=== PATIENT | male | born 1985 | race African-American/Black ===

== ENCOUNTER 2017-12-18 10:58 | Emergency (ER) | payer OTHER ==
[2017-12-18] MEDS ORDERED: ISOVUE-370 76% 100ML VIAL (Q9967) As Ordered (14:18)
== END 2017-12-18 15:59 | disposition home or self-care (01) ==
LOC: M ED 10:58
DX: M54.2 Cervicalgia (principal); R51 Headache; R40.0 Somnolence; R42 Dizziness and giddiness; R93.8 Abnormal findings on diagnostic imaging of other specified body structures; G47.00 Insomnia, unspecified; R45.4 Irritability and anger; Z87.828 Personal history of other (healed) physical injury and trauma
CPT/HCPCS: Q9967

== ENCOUNTER 2018-06-22 12:18 | Emergency (ER) | payer OTHER ==
[~2018-06-22] VITALS: Ht 170.2 cm; Wt 77.4 kg
[2018-06-22 12:18] VITALS: BP 121/80
[~2018-06-22 12:18] MED LIST: LUNE3TAB36 PO; effexor
[2018-06-22] MEDS ORDERED: EFFE37.5 PO (12:24)
[2018-06-22] MEDS ORDERED: LEVE1INJ5 SC (12:24)
[2018-06-22] MEDS ORDERED: ANUS2.5C2 TOP (12:36)
[2018-06-22] MEDS ORDERED: [UNRECOGNIZED DRUG - CODE] XX (12:36)
== END 2018-06-22 12:42 | disposition home or self-care (01) ==
LOC: M ED 12:18
DX: K64.4 Residual hemorrhoidal skin tags (principal); E11.9 Type 2 diabetes mellitus without complications; Z79.4 Long term (current) use of insulin; Z79.899 Other long term (current) drug therapy

== ENCOUNTER 2018-06-26 20:20 | Inpatient (IN) | payer OTHER ==
[~2018-06-26] VITALS: Ht 170.2 cm; Wt 72.4 kg
[~2018-06-26 20:20] MED LIST changes: +ANUS2.5C2 TOP; +EFFE37.5 PO; +LEVE1INJ5 SC; +[UNRECOGNIZED DRUG - CODE] XX
[2018-06-26] MEDS ORDERED: NS 1,000 ML IV ONE ×2 (20:45→22:15)
[2018-06-26 21:05] LABS: AMPHETAMINES LEVEL URINE NEGATIVE (NEGATIVE); BARBITURATES URINE NEGATIVE (NEGATIVE); BENZODIAZEPINES URINE NEGATIVE (NEGATIVE); CANNABINOIDS URINE NEGATIVE (NEGATIVE); COCAINE METABOLITE URINE NEGATIVE (NEGATIVE); METHADONE URINE NEGATIVE (NEGATIVE); OPIATES URINE NEGATIVE (NEGATIVE); PHENCYCLIDINE URINE NEGATIVE (NEGATIVE)
[2018-06-26 21:45] LABS: BASO % 0.2 % (0.0-1.0); EOS % 0.2 % (0.0-3.0); HEMATOCRIT 41.1 % (42.0-52.0); LYMPH # 1.4 10^3/uL (1.5-4.5); LYMPH % 32.5 % (24.0-44.0); MEAN CORPUSCULAR HEMOGLOBIN 31.7 pg (27.0-33.0); MEAN CORPUSCULAR HGB CONC 34.1 g/dl (32.0-36.5); MONO # 0.5 10^3/uL (0.0-0.8); MONO % 11.3 % (0.0-5.0); NEUTROPHILS # 2.3 10^3/uL (1.8-7.7); NEUTROPHILS % 55.6 % (36.0-66.0); PLATELET COUNT, AUTOMATED 154 10^3/uL (150-450); RED BLOOD COUNT 4.42 10^6/uL (4.30-6.10); VENOUS BASE EXCESS -16.6 (-2.0-2.0); VENOUS O2 SATURATION 59.8 % (60.0-80.0); VENOUS PARTIAL PRESSURE CO2 32.1 mmHg (38.0-50.0); VENOUS PARTIAL PRESSURE O2 36.9 mmHg (30.0-50.0); VENOUS PH 7.152 UNITS (7.330-7.430); VENOUS STANDARD HCO3 11.6 MEQ/L; WHITE BLOOD COUNT 4.2 10^3/uL (4.0-10.0)
[2018-06-26 22:03] LABS: OSMOLALITY SERUM 322 MOSM/KG (275-295)
[2018-06-26 22:05] LABS: HEMOGLOBIN A1c 13.8 %
[2018-06-26 22:22] LABS: ACETONE/KETONE > 46.00 MG/DL (<2.81); ALBUMIN 4.1 GM/DL (3.2-5.2); ALT/SGPT 22 U/L (12-78); BILIRUBIN,DIRECT 0.2 MG/DL (0.0-0.2); BILIRUBIN,TOTAL 0.5 MG/DL (0.2-1.0); BLOOD UREA NITROGEN 16 MG/DL (7-18); CALCIUM LEVEL 8.8 MG/DL (8.5-10.1); CARBON DIOXIDE LEVEL 12 MEQ/L (21-32); CHLORIDE LEVEL 100 MEQ/L (98-107); CREATININE FOR GFR 1.43 MG/DL (0.70-1.30); ETHYL ALCOHOL (ETHANOL) < 0.003 % (0.000-0.010); GLOMERULAR FILTRATION RATE > 60.0 (>60); GLUCOSE, FASTING 404 MG/DL (70-100); LIPASE 76 U/L (73-393); POTASSIUM SERUM 4.3 MEQ/L (3.5-5.1); SODIUM LEVEL 137 MEQ/L (136-145); TOTAL PROTEIN 7.8 GM/DL (6.4-8.2)
[2018-06-26] MEDS ORDERED: INSULIN HUMAN REGULAR 100 UNITS in NS 99 ML IV SCH (22:34)
[2018-06-26] MEDS ORDERED: INSULIN IV RATE CHANGE DOCUMENTATION ML/HR XX SCH (22:45)
[2018-06-26] MEDS ORDERED: HumuLIN R (REGULAR) INSULIN (NovoLIN R) **100U/ML** PER UNIT IV ONE (22:45)
[2018-06-26] MEDS ORDERED: INSUH10VL SC (23:16)
[2018-06-26] MEDS ORDERED: EFFE150C2 PO (23:16)
[2018-06-26] MEDS ORDERED: [UNRECOGNIZED DRUG - CODE] PR (23:16)
[2018-06-26] MEDS ORDERED: ANUS2.5C2 PR (23:16)
[2018-06-26] MEDS ORDERED: INSUDET SC (23:16)
[2018-06-26] MEDS ORDERED: LUNE3TAB36 PO (23:16)
[2018-06-26] MEDS ORDERED: GI COCKTAIL 50ML BTL(HYOSCYAMINE/MAALOX/LIDOCAINE VISCOUS)(1:3:1) PO ONE (23:30)
[2018-06-27] VITALS (10 sets, daily range): BP systolic 107–146; BP diastolic 63–91
[2018-06-27 00:31] LABS: BLOOD UREA NITROGEN 14 MG/DL (7-18); CALCIUM LEVEL 7.9 MG/DL (8.5-10.1); CARBON DIOXIDE LEVEL 10 MEQ/L (21-32); CHLORIDE LEVEL 107 MEQ/L (98-107); GLOMERULAR FILTRATION RATE > 60.0 (>60); GLUCOSE, FASTING 296 MG/DL (70-100); MAGNESIUM LEVEL 1.7 MG/DL (1.8-2.4); POTASSIUM SERUM 3.8 MEQ/L (3.5-5.1); SODIUM LEVEL 140 MEQ/L (136-145)
[2018-06-27] MEDS: INSULIN HUMAN REGULAR 100 UNITS in NS 99 ML IV SCH (00:47)
[2018-06-27] MEDS: ANUSOL HC CREAM 30GM PR SCH ×4 (01:12→21:00)
[2018-06-27] MEDS: POTASSIUM CHLORIDE INJ 10 MEQ in NS 1,000 ML IV SCH ×2 (02:28→04:16)
[2018-06-27 02:59] LABS: HEMOGLOBIN 12.1 g/dl (13.5-17.5); MEAN CORPUSCULAR HEMOGLOBIN 31.3 pg (27.0-33.0); MEAN CORPUSCULAR HGB CONC 33.6 g/dl (32.0-36.5); PLATELET COUNT, AUTOMATED 130 10^3/uL (150-450); RED BLOOD COUNT 3.87 10^6/uL (4.30-6.10); WHITE BLOOD COUNT 4.5 10^3/uL (4.0-10.0)
[2018-06-27 03:21] LABS: BLOOD UREA NITROGEN 11 MG/DL (7-18); CALCIUM LEVEL 7.7 MG/DL (8.5-10.1); CARBON DIOXIDE LEVEL 11 MEQ/L (21-32); CHLORIDE LEVEL 109 MEQ/L (98-107); CREATININE FOR GFR 1.18 MG/DL (0.70-1.30); GLOMERULAR FILTRATION RATE > 60.0 (>60); GLUCOSE, FASTING 222 MG/DL (70-100); POTASSIUM SERUM 3.9 MEQ/L (3.5-5.1); SODIUM LEVEL 141 MEQ/L (136-145)
[2018-06-27] MEDS: INSULIN IV RATE CHANGE DOCUMENTATION ML/HR XX SCH ×8 (04:36→23:29)
[2018-06-27] MEDS: D5W/0.45% SODIUM CHLORIDE 1,000 ML IV SCH ×3 (05:00→21:11)
[2018-06-27] MEDS: HEPARIN SOD (PORCINE) 5000 UNITS/ML VIAL SC SCH ×3 (05:46→22:00)
--- NOTE | 2018-06-27 07:23 | REP ---
Portable chest, 08:48 p.m., single AP view, the patient upright: There are no comparisons. The lung avitia are clear. The cardiac size is normal. The juana, mediastinum, and skeletal structures are unremarkable. Impression: Negative portable chest. Electronically Signed by Joel Hatfield MD 06/27/2018 07:14 A
[2018-06-27] MEDS: VENLAFAXINE **XR** 75MG CAPSULE PO SCH (08:09)
--- NOTE | 2018-06-27 08:13 | HPE ---
DATE OF ADMISSION: 06/26/2018 CHIEF COMPLAINT: Polyuria, polydipsia, fatigue and dizziness. HISTORY OF PRESENT ILLNESS: The patient is a 33-year-old male with significant past medical history of insulin dependent diabetes diagnosed approximately 8 months ago. He also has internal hemorrhoids and mood disorder. He presents to the emergency room with dizziness, generalized weakness, fatigue, polyuria, polydipsia, for the past several days. The patient is an insulin dependent diabetic and he ran out of his Glucometer strips, states he has been averaging what sliding scale insulin to give himself based on how he feels. He denies any nausea, vomiting. He denies any chest pain, shortness of breath, cough, fevers, chills, urinary symptoms, abdominal pain, constipation or diarrhea. He is likely in diabetic ketoacidosis (DKA) secondary to medication noncompliance. PAST MEDICAL HISTORY: See history of present illness. PAST SURGICAL HISTORY: Reconstructive surgery on the ankle secondary to trauma. ALLERGIES: No known drug allergies. HOME MEDICATIONS: Include: - NovoLog sliding scale - Levemir 24 - Effexor - Anusol for his recently diagnosed hemorrhoids. - hydrocortisone 2.5% cream SOCIAL HISTORY: He denies tobacco, alcohol or illicit drug use. He is a former smoker. FAMILY HISTORY: Noncontributory. REVIEW OF SYSTEMS: A 12 point review of systems was completed, all of which were negative except those listed in the history of present illness. VITAL SIGNS ON ADMISSION: Temperature 98, pulse 102, respirations 20, satting at 99% on room air, blood pressure 127/67. PHYSICAL EXAMINATION: GENERAL: He is well nourished, in no apparent distress. HEAD: Normocephalic, atraumatic. EYES: Extraocular movements are intact. Pupils equal, round, reactive to light. NECK: Supple. No jugular venous pressure (JVP). LUNGS: Clear to auscultation. No crackles, wheezes, rales or rhonchi. CARDIOVASCULAR: Regular rate and rhythm. Normal S1 and S2. No murmurs, gallops, or rubs. ABDOMEN: Soft, nontender, nondistended. Positive bowel sounds. No rebound or guarding. EXTREMITIES: No pitting edema or calf tenderness. SKIN: Intact. No rashes, lesions or breakdowns. NEUROLOGICAL EXAM: Alert and oriented times three. No focal deficits appreciated on exam. LABS AND IMAGING COMPLETED IN THE EMERGENCY DEPARTMENT: White count of 4, hemoglobin and hematocrit of 14/41, platelet count of 154. VBG shows a pH of 7.152. Chemistry shows a sodium of 137, potassium 4.3, bicarb of 12, anion gap 25, creatinine of 1.43, blood sugar 404, A1c of 13, fingerstick initially of 406. Urine toxicology is negative. Urinalysis is negative. Blood alcohol level is negative. Beta hydroxybutyrate level greater than 46. Chest x-ray shows no acute disease. ASSESSMENT/PLAN: 1. Diabetic ketoacidosis (DKA) likely secondary to medication noncompliance. Will place the patient on an insulin drip as per protocol. Normal saline at 200 with 10 mEq of K. When his fingersticks drop below 200 he is to be switched to D5 1/2 at 100, BMP every 4 hours, fingerstick every hour until the gap closes, which the patient can be bridged with long acting insulin and allowed to eat. The patient will need diabetic education as well as supplies on discharge. 2. For hemorrhoids, continue hydrocortisone as needed. 3. For mood disorder continue venlafaxine. 4. Supportive deep vein thrombosis (DVT) prophylaxis heparin subcu. 5. Gastrointestinal (GI) prophylaxis not indicated. 6. Diet nothing by mouth for now.
[2018-06-27 08:24] LABS: BLOOD UREA NITROGEN 9 MG/DL (7-18); CALCIUM LEVEL 7.6 MG/DL (8.5-10.1); CARBON DIOXIDE LEVEL 16 MEQ/L (21-32); CHLORIDE LEVEL 111 MEQ/L (98-107); CREATININE FOR GFR 1.08 MG/DL (0.70-1.30); GLOMERULAR FILTRATION RATE > 60.0 (>60); GLUCOSE, FASTING 235 MG/DL (70-100); MAGNESIUM LEVEL 1.8 MG/DL (1.8-2.4); POTASSIUM SERUM 3.6 MEQ/L (3.5-5.1); SODIUM LEVEL 142 MEQ/L (136-145)
[2018-06-27] MEDS ORDERED: POTASSIUM CHLORIDE 10 MEQ SR TABLET PO ONE (10:00)
[2018-06-27 12:01] LABS: BLOOD UREA NITROGEN 6 MG/DL (7-18); CALCIUM LEVEL 7.7 MG/DL (8.5-10.1); CARBON DIOXIDE LEVEL 18 MEQ/L (21-32); CHLORIDE LEVEL 110 MEQ/L (98-107); CREATININE FOR GFR 1.13 MG/DL (0.70-1.30); GLOMERULAR FILTRATION RATE > 60.0 (>60); GLUCOSE, FASTING 199 MG/DL (70-100); POTASSIUM SERUM 3.4 MEQ/L (3.5-5.1); SODIUM LEVEL 140 MEQ/L (136-145)
[2018-06-27] MEDS ORDERED: ONDANSETRON 4MG/2ML VIAL (J2405) IV PRN (13:15)
[2018-06-27 15:07] LABS: BLOOD UREA NITROGEN 6 MG/DL (7-18); CALCIUM LEVEL 7.9 MG/DL (8.5-10.1); CARBON DIOXIDE LEVEL 17 MEQ/L (21-32); CHLORIDE LEVEL 108 MEQ/L (98-107); CREATININE FOR GFR 1.09 MG/DL (0.70-1.30); GLOMERULAR FILTRATION RATE > 60.0 (>60); GLUCOSE, FASTING 206 MG/DL (70-100); POTASSIUM SERUM 3.7 MEQ/L (3.5-5.1); SODIUM LEVEL 139 MEQ/L (136-145)
--- NOTE | 2018-06-27 17:05 | ECGEPIP ---
Stationary ECG Study [facility] - ED Test Date: 2018-06-26 Pat Name: DELFINA BARNARD Department: Room: [place] [address] Gender: M [employer] Exped[employer]: elvis : 1985 Requested By: MARIE Campbell Order Number: [id number] Reading MD: Huy Moses Measurements Intervals [place] Rate: 88 P: 70 ND: 154 QRS: 68 QRSD: 92 T: 62 QT: 368 QTc: 447 Interpretive Statements SINUS RHYTHM INCOMPLETE RIGHT BUNDLE BRANCH BLOCK NO PRIORS FOR COMPARISON Electronically Signed On 06-27-2018 17:05:20 EST by Huy Moses
[2018-06-27 19:03] LABS: BLOOD UREA NITROGEN 4 MG/DL (7-18); CALCIUM LEVEL 7.9 MG/DL (8.5-10.1); CARBON DIOXIDE LEVEL 18 MEQ/L (21-32); CHLORIDE LEVEL 108 MEQ/L (98-107); CREATININE FOR GFR 1.03 MG/DL (0.70-1.30); GLOMERULAR FILTRATION RATE > 60.0 (>60); GLUCOSE, FASTING 215 MG/DL (70-100); POTASSIUM SERUM 3.6 MEQ/L (3.5-5.1); SODIUM LEVEL 137 MEQ/L (136-145)
[2018-06-27 23:44] LABS: BLOOD UREA NITROGEN 3 MG/DL (7-18); CALCIUM LEVEL 8.1 MG/DL (8.5-10.1); CARBON DIOXIDE LEVEL 18 MEQ/L (21-32); CHLORIDE LEVEL 108 MEQ/L (98-107); CREATININE FOR GFR 0.98 MG/DL (0.70-1.30); GLOMERULAR FILTRATION RATE > 60.0 (>60); GLUCOSE, FASTING 206 MG/DL (70-100); POTASSIUM SERUM 3.4 MEQ/L (3.5-5.1); SODIUM LEVEL 139 MEQ/L (136-145)
[2018-06-28] VITALS (9 sets, daily range): BP systolic 120–156; BP diastolic 61–98
[2018-06-28] MEDS: INSULIN HUMAN REGULAR 100 UNITS in NS 99 ML IV SCH (00:09)
[2018-06-28] MEDS: INSULIN IV RATE CHANGE DOCUMENTATION ML/HR XX SCH ×5 (03:11→09:00)
[2018-06-28 04:06] LABS: HEMOGLOBIN 12.6 g/dl (13.5-17.5); MEAN CORPUSCULAR HEMOGLOBIN 31.1 pg (27.0-33.0); MEAN CORPUSCULAR VOLUME 86.4 fl (80.0-96.0); PLATELET COUNT, AUTOMATED 128 10^3/uL (150-450); RED BLOOD COUNT 4.05 10^6/uL (4.30-6.10); WHITE BLOOD COUNT 3.7 10^3/uL (4.0-10.0)
[2018-06-28 04:27] LABS: BLOOD UREA NITROGEN 3 MG/DL (7-18); CALCIUM LEVEL 7.9 MG/DL (8.5-10.1); CARBON DIOXIDE LEVEL 21 MEQ/L (21-32); CHLORIDE LEVEL 108 MEQ/L (98-107); CREATININE FOR GFR 0.94 MG/DL (0.70-1.30); GLOMERULAR FILTRATION RATE > 60.0 (>60); GLUCOSE, FASTING 207 MG/DL (70-100); MAGNESIUM LEVEL 1.7 MG/DL (1.8-2.4); POTASSIUM SERUM 3.4 MEQ/L (3.5-5.1); SODIUM LEVEL 140 MEQ/L (136-145)
[2018-06-28] MEDS: D5W/0.45% SODIUM CHLORIDE 1,000 ML IV SCH (07:33)
[2018-06-28] MEDS ORDERED: POTASSIUM CHLORIDE 10 MEQ SR TABLET PO ONE ×3 (07:45→17:15)
[2018-06-28] MEDS ORDERED: MAG SULF 1GM/100ML (MAG RUN) 1 GM in APPROPRIATE DILUENT 1 EA IV ONE (07:45)
[2018-06-28] MEDS ORDERED: LEVEMIR (INSULIN DETEMIR) 1 UNITS/0.01ML SC ONE (07:45)
[2018-06-28 08:37] LABS: BLOOD UREA NITROGEN 3 MG/DL (7-18); CALCIUM LEVEL 7.8 MG/DL (8.5-10.1); CARBON DIOXIDE LEVEL 22 MEQ/L (21-32); CHLORIDE LEVEL 107 MEQ/L (98-107); CREATININE FOR GFR 0.91 MG/DL (0.70-1.30); GLOMERULAR FILTRATION RATE > 60.0 (>60); GLUCOSE, FASTING 208 MG/DL (70-100); POTASSIUM SERUM 3.3 MEQ/L (3.5-5.1); SODIUM LEVEL 139 MEQ/L (136-145)
[2018-06-28] MEDS: ANUSOL HC CREAM 30GM PR SCH ×3 (08:50→21:00)
--- NOTE | 2018-06-28 09:18 | IPNPDOC ---
Text Note Date of Service The patient was seen on 06/28/18. NOTE SUBJECTIVE: Patient was examined at bedside this am. . He denied abdominal pain, denied any chest pain, denies any breathing difficulty. No focal neurological deficit to report. OBJECTIVE: PHYSICAL EXAMINATION: GENERAL APPEARANCE: Alert no acute distress. SKIN: Warm, well perfused. LUNGS: Clear to auscultation bilaterally. HEART: Normal S1, S2. No murmurs, no rubs, no gallops ABDOMEN: Soft. No masses. Bowel sounds are present. EXTREMITIES: Moves all extremities equally. No gross deformities. PULSES: 2+ upper and lower extremity . LABORATORY DATA: Please see below. ASSESSMENT AND PLAN: Diabetic ketoacidosis - likely 2/2 to medication noncompliance - Patient is indicated that he's experienced fatigue upon arrival - Found to be in DKA with an elevated anion gap and a suppressed bicarbonate - Patient is indicated that he has not been measuring his blood sugars appropr iately because he had ran out of test strips - Rbandon does not indicate any signs of infection - UA / CXR are benign - Will DC Insulin drip; transition to Insulin SQ - Will start Consistent carbohydrate diet s/p Electrolyte abnormalities - Have been supplemented Pancytopenia - possibly 2/2 dilutional etiology Thrombocytopenia Normocytic anemia Leukopenia - No evidence of bleeding - Will follow repeat CBC - Will discuss with patient about consideration for Hepatitis / HIV workup External hemorrhoids - c/w topical hydrocortisone Mood disorder - c/w venlafaxine DVT prophylaxis - c/w Heparin SQ / SCDs&TEDs Deposition: - Anticipate DC within 24 hours VS,Mariano, I+O VS, Mariano, I+O Laboratory Tests 06/27/18 11:13 Calcium Level 7.7 L 06/27/18 14:25 Calcium Level 7.9 L 06/27/18 18:23 Calcium Level 7.9 L 06/27/18 23:08 Calcium Level 8.1 L 06/28/18 03:59 Red Blood Count 4.05 L, Mean Corpuscular Volume 86.4, Mean Corpuscular Hemoglobin 31.1, Mean Corpuscular Hemoglobin Concent 36.0, Red Cell Distribution Width 14.4, Calcium Level 7.9 L 06/28/18 08:00 Calcium Level 7.8 L Vital Signs Date Time Temp Pulse Resp B/P (MAP) Pulse Ox O2 Delivery O2 Flow Rate FiO2 06/28/18 04:00 98.7 75 18 120/61 (80) 97 06/26/18 20:34 Room Air I&O- Last 24 Hours up to 6 AM 06/28/18 06:00 Intake Total 2266 ml Output Total 2225 ml Balance 41 ml GME ATTESTATION GME ATTESTATION My faculty preceptor for this patient encounter was physically present during the encounter and was fully available. All aspects of the patient interview, examination, medical decision making process, and medical care plan development were reviewed and approved by the faculty preceptor. The faculty preceptor is aware and concurs with the plan as stated in the body of this note and will attest to such by his/her cosignature. ATTENDING NOTE I, Augusta Curry, have both independently examined this patient as well as reviewed the documentation. I have discussed in detail with the resident the findings and plan of treatment as documented in the residents documentation. I will continue to follow the patient and offer further guidance to the patients care as necessary during this hospital stay. KIZZY MCKEON DO Jun 28, 2018 09:18 AUGUSTA CURRY MD Jun 28, 2018 13:27
[2018-06-28] MEDS ORDERED: DEXTROSE 50% 50 ML SYRINGE IV PRN (10:45)
[2018-06-28] MEDS ORDERED: GLUCAGON FOR INJ 1 MG VIAL (J1610) SC PRN (10:45)
[2018-06-28] MEDS ORDERED: GLUCOSE 4 GM CHEW TABLET PO PRN (10:45)
[2018-06-28] MEDS: HumaLOG INSULIN (NovoLOG) PER UNIT SC SCH ×2 (12:42→17:39)
[2018-06-28] MEDS: VENLAFAXINE **XR** 75MG CAPSULE PO SCH (12:42)
[2018-06-28 12:52] LABS: BLOOD UREA NITROGEN 2 MG/DL (7-18); CALCIUM LEVEL 8.4 MG/DL (8.5-10.1); CARBON DIOXIDE LEVEL 20 MEQ/L (21-32); CHLORIDE LEVEL 105 MEQ/L (98-107); CREATININE FOR GFR 0.89 MG/DL (0.70-1.30); GLOMERULAR FILTRATION RATE > 60.0 (>60); GLUCOSE, FASTING 198 MG/DL (70-100); MAGNESIUM LEVEL 1.8 MG/DL (1.8-2.4); POTASSIUM SERUM 3.5 MEQ/L (3.5-5.1); SODIUM LEVEL 137 MEQ/L (136-145)
[2018-06-28 14:30] LABS: ALBUMIN 3.2 GM/DL (3.2-5.2); ALT/SGPT 17 U/L (12-78); BILIRUBIN,DIRECT 0.1 MG/DL (0.0-0.2); BILIRUBIN,TOTAL 0.5 MG/DL (0.2-1.0); TOTAL PROTEIN 6.4 GM/DL (6.4-8.2)
[2018-06-28 16:48] LABS: BLOOD UREA NITROGEN 3 MG/DL (7-18); CALCIUM LEVEL 8.5 MG/DL (8.5-10.1); CARBON DIOXIDE LEVEL 22 MEQ/L (21-32); CHLORIDE LEVEL 104 MEQ/L (98-107); CREATININE FOR GFR 0.83 MG/DL (0.70-1.30); GLOMERULAR FILTRATION RATE > 60.0 (>60); GLUCOSE, FASTING 213 MG/DL (70-100); MAGNESIUM LEVEL 1.7 MG/DL (1.8-2.4); POTASSIUM SERUM 3.4 MEQ/L (3.5-5.1); SODIUM LEVEL 137 MEQ/L (136-145)
[2018-06-28] MEDS ORDERED: HumaLOG INSULIN (NovoLOG) PER UNIT SC SCH (21:00)
[2018-06-29 03:29] LABS: HEMATOCRIT 35.7 % (42.0-52.0); HEMOGLOBIN 12.5 g/dl (13.5-17.5); MEAN CORPUSCULAR HEMOGLOBIN 31.3 pg (27.0-33.0); MEAN CORPUSCULAR VOLUME 89.5 fl (80.0-96.0); PLATELET COUNT, AUTOMATED 119 10^3/uL (150-450); RED BLOOD COUNT 3.99 10^6/uL (4.30-6.10); WHITE BLOOD COUNT 3.3 10^3/uL (4.0-10.0)
[2018-06-29 03:47] LABS: BLOOD UREA NITROGEN 3 MG/DL (7-18); CALCIUM LEVEL 8.4 MG/DL (8.5-10.1); CARBON DIOXIDE LEVEL 28 MEQ/L (21-32); CHLORIDE LEVEL 103 MEQ/L (98-107); CREATININE FOR GFR 0.93 MG/DL (0.70-1.30); GLOMERULAR FILTRATION RATE > 60.0 (>60); GLUCOSE, FASTING 208 MG/DL (70-100); POTASSIUM SERUM 3.6 MEQ/L (3.5-5.1); SODIUM LEVEL 139 MEQ/L (136-145)
[2018-06-29 04:00] VITALS: BP 123/80
[2018-06-29 07:47] VITALS: BP 120/79
[2018-06-29] MEDS ORDERED: MAG SULF 1GM/100ML (MAG RUN) 1 GM in APPROPRIATE DILUENT 1 EA IV ONE (08:00)
[2018-06-29] MEDS ORDERED: INSUDET SC (08:22)
[2018-06-29] MEDS ORDERED: INSUH10VL SC (08:22)
[2018-06-29] MEDS: HumaLOG INSULIN (NovoLOG) PER UNIT SC SCH (08:38)
[2018-06-29] MEDS: VENLAFAXINE **XR** 75MG CAPSULE PO SCH (08:39)
[2018-06-29] MEDS: ANUSOL HC CREAM 30GM PR SCH (08:39)
[2018-06-29] MEDS ORDERED: LEVEMIR (INSULIN DETEMIR) 1 UNITS/0.01ML SC SCH (09:00)
--- NOTE | 2018-06-29 09:51 | DS.PDOC ---
Discharge Summary General Date of Admission Jun 26, 2018 at 23:19 Date of Discharge 06/29/18 Attending Physician: AUGUSTA CRAWLEY MD Discharge Summary PCP: [facility] PROCEDURES PERFORMED DURING STAY: None ADMITTING DIAGNOSES / DISCHARGE DIAGNOSES: Diabetic ketoacidosis - likely 2/2 to medication noncompliance s/p Electrolyte abnormalities Pancytopenia External hemorrhoids Mood disorder DVT prophylaxis COMPLICATIONS/CHIEF COMPLAINT: Fatigue / Dizziness HISTORY OF PRESENT ILLNESS: Patient is a 33 year old -[place] male who presented emergency room with complaints of several days of dizziness, generalized weakness, fatigue, polyuria, and polydipsia. He ran out of his glucometer strips, and was averaging his sliding scale insulin based on how he felt. On presentation he denied any nausea, vomiting. He denies any chest pain, shortness of breath, cough, fevers, chills, urinary symptoms, abdominal pain, constipation or diarrhea. Initial laboratory values showed that patient was in in DKA with an elevated anion gap and a suppressed bicarbonate, due to medications non-compliance. HOSPITAL COURSE: Diabetic ketoacidosis - likely 2/2 to medication noncompliance - Patient is indicated that he's experienced fatigue upon arrival - Found to be in DKA with an elevated anion gap and a suppressed bicarbonate - Patient is indicated that he has not been measuring his blood sugars appropriately because he had ran out of test strips - Brandon does not indicate any signs of infection - UA / CXR are benign - s/p insulin; Started insulin SQ; increased Levemir 28 units - c/w Consistent carbohydrate diet s/p Electrolyte abnormalities - Have been supplemented Pancytopenia - possibly 2/2 dilutional etiology Thrombocytopenia Normocytic anemia Leukopenia - No evidence of bleeding - Will follow repeat CBC - Advised patient that the findings on lab work; patient was unaware of any prior lab work indicated similar findings - Advised that we will get a hepatitis profile and HIV screen; he has been instructed to follow-up as an outpatient with his PCP for results External hemorrhoids - c/w Topical hydrocortisone Mood disorder - c/w Venlafaxine DVT prophylaxis - c/w TEDs and Sequentials DISCHARGE MEDICATIONS: Please see below. ALLERGIES: Please see below. PHYSICAL EXAMINATION ON DISCHARGE: VITAL SIGNS: Please see below. GENERAL APPEARANCE: Alert no acute distress. SKIN: Warm, well perfused. LUNGS: Clear to auscultation bilaterally. HEART: Normal S1, S2. No murmurs, no rubs, no gallops ABDOMEN: Soft. No masses. Bowel sounds are present. EXTREMITIES: Moves all extremities equally. No gross deformities. PULSES: 2+ upper and lower extremity . LABORATORY DATA: Please see below. IMAGING: Chest X-Ray: Negative portable chest. PROGNOSIS: Fair ACTIVITY: As tolerated DIET: Consistent carbohydrate DISCHARGE PLAN: Follow up with PCP and Dr. Dotson within 7 days Remain compliant with treatment plan and medications Return to the ER if you experience any problems. DISPOSITION: Stable DISCHARGE CONDITION: Stable TIME SPENT ON DISCHARGE: Greater than 30 minutes. Vital Signs/I&Os Vital Signs Date Time Temp Pulse Resp B/P (MAP) Pulse Ox O2 Delivery O2 Flow Rate FiO2 06/29/18 04:00 98.2 84 16 123/80 (94) 99 06/26/18 20:34 Room Air I&O- Last 24 Hours up to 6 AM 06/29/18 06:00 Intake Total 1281 ml Output Total 1300 ml Balance -19 ml Laboratory Data Labs 24H Laboratory Tests 2 06/28/18 10:03: Bedside Glucose (Misc Panel) 177H 06/28/18 11:53: Bedside Glucose (Misc Panel) 211H 06/28/18 12:00: Anion Gap 12, Glomerular Filtration Rate > 60.0, Calcium Level 8.4L, Magnesium Level 1.8, Aspartate Amino Transf (AST/SGOT) 13, Alanine Aminotransferase (ALT/SGPT) 17, Alkaline Phosphatase 49, Total Bilirubin 0.5, Direct Bilirubin 0.1, Total Protein 6.4, Albumin 3.2#, Albumin/Globulin Ratio 1.00 06/28/18 16:15: Anion Gap 11, Glomerular Filtration Rate > 60.0, Calcium Level 8.5, Magnesium Level 1.7L, Blood Urea Nitrogen 3L, Creatinine 0.83, Sodium Level 137, Potassium Level 3.4L, Chloride Level 104, Carbon Dioxide Level 22 06/28/18 21:20: Bedside Glucose (Misc Panel) 256H 06/29/18 03:15: Nucleated Red Blood Cells % (auto) 0.0, Anion Gap 8, Glomerular Filtration Rate > 60.0, Blood Urea Nitrogen 3L, Creatinine 0.93, Sodium Level 139, Potassium Level 3.6, Chloride Level 103, Carbon Dioxide Level 28, Calcium Level 8.4L, Magnesium Level 1.7L 06/29/18 08:29: Bedside Glucose (Misc Panel) 282H 06/29/18 08:50: CBC/BMP Laboratory Tests 06/28/18 12:00 Calcium Level 8.4 L 06/28/18 16:15 Calcium Level 8.5 06/29/18 03:15 Calcium Level 8.4 L, Red Blood Count 3.99 L, Mean Corpuscular Volume 89.5, Mean Corpuscular Hemoglobin 31.3, Mean Corpuscular Hemoglobin Concent 35.0, Red Cell Distribution Width 15.0 H FSBS Laboratory Tests Test 06/28/18 10:03 06/28/18 11:53 06/28/18 21:20 06/29/18 08:29 Range/Units Bedside Glucose (Misc Panel) 177 211 256 282 70-105 MG/DL Microbiology Microbiology 06/26/18 Blood Culture - Preliminary, Resulted No Growth after 48 hours. All Specime... 06/26/18 Blood Culture - Preliminary, Resulted No Growth after 48 hours. All Specime... Discharge Medications Scheduled Hydrocortisone (Anusol-Hc) 2.5 % Cre, 1 DOSE FL TID, (Reported) Insulin Aspart (Novolog) 100 U/Ml Inj, 1 DOSE SC ACHS PER SLIDING SCALE from Hospital Insulin Detemir (Levemir) 1 Units/0.01 Ml Susp, 28 UNITS SC DAILY Venlafaxine Hydrochloride (Effexor Xr) 150 Mg Cap, 150 MG PO DAILY, (Reported) Scheduled PRN (Lunesta) 3 Mg Tab, 3 MG PO QHS PRN for SLEEP, (Reported) Allergies Coded Allergies: No Known Allergies (Unverified , 12/18/17) GME ATTESTATION GME ATTESTATION My faculty preceptor for this patient encounter was physically present during the encounter and was fully available. All aspects of the patient interview, examination, medical decision making process, and medical care plan development were reviewed and approved by the faculty preceptor. The faculty preceptor is aware and concurs with the plan as stated in the body of this note and will attest to such by his/her cosignature. ATTENDING NOTE I, Augusta Crawley, have both independently examined this patient as well as reviewed the documentation. I have discussed in detail with the resident the findings and plan of treatment as documented in the residents documentation. I will continue to follow the patient and offer further guidance to the patients care as necessary during this hospital stay. KIZZY MCKEON DO Jun 29, 2018 09:51 AUGUSTA CRAWLEY MD Jun 29, 2018 11:33
[2018-06-29 11:02] LABS: HEPATITIS A ANTIBODY IGM NEGATIVE (NEGATIVE); HEPATITIS B CORE ANTIBODY IGM NEGATIVE (NEGATIVE); HEPATITIS B SURFACE ANTIGEN NEGATIVE (NEGATIVE); HIV 1&2 SCREEN CENTAUR NEGATIVE (NEGATIVE)
== END 2018-06-29 11:20 | disposition home or self-care (01) | DRG 638 ==
LOC: EDBD 20:20 → M ED 20:20 → M ED INP 23:19 → M ICU 06-27 01:06
PROVIDERS: ADMIT Internal Medicine; ATTEND Internal Medicine
DX: E11.10 Type 2 diabetes mellitus with ketoacidosis without coma (principal); D61.818 Other pancytopenia; Z91.19 Patient's noncompliance with other medical treatment and regimen; F39 Unspecified mood [affective] disorder; K64.4 Residual hemorrhoidal skin tags; Z79.4 Long term (current) use of insulin; Z79.899 Other long term (current) drug therapy